=== PATIENT | male | born 1970 | race African-American/Black ===

== ENCOUNTER 2020-08-06 10:18 | Emergency (ER) | payer MEDICAID, OTHER ==
[~2020-08-06] VITALS: Ht 185.4 cm; Wt 101.2 kg
[2020-08-06 10:22] VITALS: BP 140/80
[2020-08-06] MEDS ORDERED: ACETAMINOPHEN 500 MG TAB PO ONE (12:00)
== END 2020-08-06 12:14 | disposition home or self-care (01) ==
LOC: ER 10:18
DX: U07.1 COVID-19 (principal); J40 Bronchitis, not specified as acute or chronic; E11.9 Type 2 diabetes mellitus without complications; I10 Essential (primary) hypertension
CPT/HCPCS: 36415; 71045; 87426

== ENCOUNTER 2021-02-07 09:25 | Emergency (ER) | payer MEDICAID ==
[~2021-02-07] VITALS: Ht 182.9 cm; Wt 107.5 kg
[2021-02-07 10:39] LABS: Basophils # (auto) 0.1 10 ^3/uL (0-0.2); Basophils % (auto) 1.8 % (0.0-2.0); Eosinophils # (auto) 0.2 10 ^3/uL (0-0.8); Eosinophils % (auto) 4.7 % (0.0-7.0); Hematocrit 41.2 % (41.0-53.0); Hemoglobin 14.6 g/dL (13.5-17.5); Lymphocytes # (auto) 1.6 10 ^3/uL (0.4-5.4); Lymphocytes % (auto) 38.3 % (10.0-50.0); Mean Corpuscular Hemoglobin 30.2 pg (28.0-32.0); Mean Corpuscular Hgb Conc. 35.4 g/dL (32.0-36.0); Mean Corpuscular Volume 85.4 fL (80.0-100.0); Monocytes # (auto) 0.3 10 ^3/uL (0-1.3); Monocytes % (auto) 7.8 % (0.0-12.0); Neutrophils % (auto) 47.4 % (37.0-80.0); Nucleated Red Blood Cells % 0.2 %; Red Blood Cells 4.82 10^6/uL (4.5-5.90); Red Cell Distribution Width 13.9 % (11.8-14.3); White Blood Cell 4.2 10^3/uL (4.4-10.8)
[2021-02-07 10:52] LABS: INR 0.94 (0.9-1.15); Partial Thromboplastin Time 26.7 sec (23.0-31.2)
[2021-02-07 10:59] LABS: Albumin 3.5 g/dL (3.4-5.0); Anion Gap 7 (5-15); Blood Urea Nitrogen 14 mg/dL (7-18); Calcium 8.2 mg/dL (8.5-10.1); Carbon Dioxide 24 mmol/L (21-32); Chloride 101 mmol/L (98-107); Glucose 334 mg/dL (74-106); Potassium 4.8 mmol/L (3.5-5.1); Sodium 132 mmol/L (136-145)
[2021-02-07 11:05] LABS: Alkaline Phosphatase 94 U/L (45-117); BUN/Creatinine Ratio 13.6; Bilirubin, Total 0.6 mg/dL (0.2-1.0); GFR African American 98 mL/min; GFR Non-African American 81 mL/min; Total Protein 8.1 g/dL (6.4-8.2)
[2021-02-07 11:22] LABS: Alanine Aminotransferase 60 U/L (16-61); Aspartate Aminotransferase 63 U/L (15-37)
[2021-02-07 16:10] VITALS: BP 148/86
== END 2021-02-07 14:28 | disposition home or self-care (01) ==
LOC: ER 09:25
DX: U07.1 COVID-19 (principal); J40 Bronchitis, not specified as acute or chronic; E11.9 Type 2 diabetes mellitus without complications; I10 Essential (primary) hypertension
CPT/HCPCS: 36415; 71045; 80053; 83605; 83880; 84484; 85025; 85610; 85730; 87426; 93005

== ENCOUNTER 2024-04-30 10:32 | Emergency (ER) | payer MEDICAID ==
[~2024-04-30] VITALS: Ht 185.4 cm; Wt 99.4 kg
[2024-04-30 11:05] VITALS: BP 158/98; PULSE 106; RESP 18; TEMP 97.8; O2SAT 98
[2024-04-30] MEDS: KETOROLAC TROMETH 30 MG/ML 1ML VIAL IM ONE (11:29)
[2024-04-30] MEDS: methylPREDNISolone SOD SUCC 125 MG/2 ML VL IM ONE (11:29)
[2024-04-30] MEDS ORDERED: METH4PAK PO (11:36)
== END 2024-04-30 12:00 | disposition home or self-care (01) ==
LOC: ER 10:32
DX: S39.011A Strain of muscle, fascia and tendon of abdomen, initial encounter (principal); I10 Essential (primary) hypertension; E11.9 Type 2 diabetes mellitus without complications; M79.10 Myalgia, unspecified site; Z86.73 Personal history of transient ischemic attack (TIA), and cerebral infarction without residual deficits; X58.XXXA Exposure to other specified factors, initial encounter; Y93.89 Activity, other specified; Y92.89 Other specified places as the place of occurrence of the external cause; Y99.8 Other external cause status
CPT/HCPCS: 96372; 99284; J1885; J2919